=== PATIENT | male | born 1955 | race Caucasian/White ===

== ENCOUNTER 2020-08-06 09:10 | Outpatient (CLI) | payer MEDICARE, BC | END 2020-08-06 23:59 | disposition home or self-care (01) | LOC: MSC 09:10 | PROVIDERS: ATTEND Internal Medicine | DX: R35.0 Frequency of micturition (principal); E11.22 Type 2 diabetes mellitus with diabetic chronic kidney disease; N18.30 Chronic kidney disease, stage 3 unspecified; I10 Essential (primary) hypertension | CPT/HCPCS: 76770; G0463 ==

== ENCOUNTER 2020-09-23 13:35 | Outpatient (CLI) | payer MEDICARE, BC | END 2020-09-23 23:59 | disposition home or self-care (01) | LOC: MSC 13:35 | PROVIDERS: ATTEND Internal Medicine | DX: I12.9 Hypertensive chronic kidney disease with stage 1 through stage 4 chronic kidney disease, or unspecified chronic kidney disease (principal); E11.22 Type 2 diabetes mellitus with diabetic chronic kidney disease; N18.30 Chronic kidney disease, stage 3 unspecified; N32.89 Other specified disorders of bladder; R35.0 Frequency of micturition ==